=== PATIENT | female | born 2000 | race African-American/Black ===

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

== ENCOUNTER 2021-05-07 08:41 | Emergency (ER) | payer MEDICAID ==
[~2021-05-07] VITALS: Ht 170.2 cm; Wt 113.6 kg
[~2021-05-07 08:41] MED LIST changes: +BENZ-16 PO
[2021-05-07 09:12] VITALS: BP 145/85
== END 2021-05-07 09:40 | disposition home or self-care (01) ==
LOC: ER 08:41
DX: R05 Cough (principal); Z20.822 Contact with and (suspected) exposure to COVID-19; R09.89 Other specified symptoms and signs involving the circulatory and respiratory systems; J02.9 Acute pharyngitis, unspecified; Z79.899 Other long term (current) drug therapy
CPT/HCPCS: 36415; 99283; U0003